=== PATIENT | male | born 1950 | race Two or more races ===

== ENCOUNTER 2024-07-18 14:38 | Inpatient (IN) | payer MEDICARE, OTHER ==
[~2024-07-18] VITALS: Ht 167.6 cm; Wt 77.3 kg
[2024-07-18] MEDS ORDERED: DOCUSATE SOD 100 MG CAP PO PRN (17:45)
[2024-07-18] MEDS ORDERED: NITROGLYCERIN 0.4 MG SL TAB SL PRN (17:45)
[2024-07-18] MEDS ORDERED: ACETAMINOPHEN 325 MG TAB PO PRN (17:45)
[2024-07-18] MEDS ORDERED: ONDANSETRON HCL 4 MG/2 ML VIAL IV PRN (17:45)
[2024-07-18] MEDS ORDERED: MORPHINE SULFATE INJ 2 MG/ml SYRG IV PRN ×2 (17:45)
[2024-07-18] MEDS ORDERED: LORazepam 0.5 MG TAB PO PRN (17:45)
--- NOTE | 2024-07-18 18:03 | DVHHPRES ---
History of Present Illness Resident Creating Document: SHERWIN POWELL RESIDENT History of Present Illness Renato Juárez is a 73-year-old male patient who presents transferred from other center ([facility]ly [facility]) due to nonradiating retrosternal stabbing chest pain in variable functional class, intensity 10/10, of less than 5 seconds duration, which does not reproduce with palpation nor with our movements of respiration associated with hypertension (systolic blood pressure of 170 mmHg) and dyspnea in variable functional class. Patient reports episode of mechanical fall with no loss of consciousness, per patient he felt that his legs were weak. Patient was diagnosed with NSTEMI (had elevated troponin and other center), for which he was transferred to higher level of care to follow up with evaluation. Denies palpitation, syncope, fever, chills, nausea, vomiting, diarrhea, constipation, bleeding, sick contacts, recent travel and motor and sensory deficits. Past medical history: Hypertension, COPD on intermittent home oxygen (2 liters/minute, normally during nighttime), AAA status postop with posterior umbilical hernia but patient is inoperable due to his COPD status. Surgical history: AAA surgical repair in 2019 Family history: Noncontributory Social history: Recently moved to [place] from [place], he lives with gra nddaughter. He used to live in [place] with spouse and daughter, we are going to come visit him. Ex-smoker (50 pack-year history of smoking). Socially drinks alcohol (less than two drinks per week). Denies current tobacco, alcohol and other drug abuse Allergies: Denies Home medication: Lisinopril 5 mg p.o. daily, cholecalciferol, tiotropium, mometasone Patient seen and examined at bedside. Currently has no new complaints, has not felt chest pain since he was transferred from the other center. Patient continues with hypertensive blood pressure measurements. Past Medical History Per HPI Past Surgical History Per HPI Family History Per HPI Past Social History Per HPI Review of Systems Review of Systems Per HPI Allergies: Coded Allergies: NO KNOWN ALLERGIES (Unverified , 07/18/24) Medications Current Medications Medications Dose Ordered Sig/Niels Route Start Time Stop Time Status Last Admin Dose Admin Hydralazine HCl 10 mg Q6HR IV 07/18/24 18:00 UNV Exam Exam Patient lying in bed, in no acute distress General: Lucid, afebrile, mucosae are moist Cardiovascular: Normal S1 and S2. No murmurs, gallops or rubs Respiratory: Normal ventilation mechanics. Bibasilar rales, rest of lung auscultation with decreased lung sounds. Currently on nasal cannula 3 liters/minute Abdomen: Soft, nontender, no organomegaly, normal bowel sounds MSK/skin: Mobilizes 4 limbs. Skin is dry and warm. Bilateral supramalleolar pitting edema +2 Neurological: Oriented in 3 spheres. No motor no sensitive deficits. Pupils are isocoric and reactive Assessment/Plan Assessment/Plan Hypertensive emergency Continue with home medication (lisinopril 5 mg p.o. daily) Per records, patient presented chest pain and elevated troponin and other center. Chest pain impresses noncardiac (stabbing, seconds of duration and in variable functional class) Hydralazine p.r.n. Ordered echocardiogram NSTEMI probable type 2 Due to above Completed EKG which shows sinus rhythm at 75 beats per minute, complete RBBB, i solated PACs Acute respiratory failure On oxygen therapy Acute on chronic undetermined CHF (pending echocardiogram to evaluate LVEF) Currently on IV diuretics (furosemide 40 mg IV b.i.d.) Ordered echocardiogram, pending. Probable COPD exacerbation Currently patient is on on oxygen therapy (3 liters/minute), higher requirement that home oxygen therapy Indicated bronchodilators, IV steroids and doxycycline History of AAA status postop Completed surgery in 2019 and [place] Umbilical hernia Patient is inoperable due to his COPD status. Goals of care discussed with patient for over 18 minutes: Full code status Discussed case with Dr. Lazaro, patient and nurses: Completed complementary workup (chest x-ray, complete lab workup, echocardiogram). Optimizing medical therapy with IV diuretics, bronchodilators, oxygen therapy and antibiotics. Optimizing blood pressure with antihypertensive medication IV, continue with p.o. medication. Plan discussed with: Patient, Other (Nurses) My Orders Orders - SHERWIN POWELL RESIDENT Procedure Category Date Status Time Chest Xray 1 View XY 07/18/24 Logged 17:38 B-Type Natriuretic LAB 07/18/24 Logged Peptide 17:38 Vitamin D, 25-Hydroxy LAB 07/18/24 Logged 17:38 Vitamin B12 LAB 07/18/24 Logged 17:38 Phosphorus LAB 07/18/24 Logged 17:38 Magnesium LAB 07/18/24 Logged 17:38 Lipid Panel LAB 07/18/24 Logged 17:38 Lactic Acid W/ Reflex LAB 07/18/24 Logged Order 17:38 Hemoglobin A1c LAB 07/18/24 Logged 17:38 Date of Service: Jul 18, 2024 Billing Provider: AMALIA LAZARO MD Common Visit Codes: [id number] INP/OBS CARE (HIGH) Secondary Visit Codes: [id number] CARE PLAN 30 MINUTES SHERWIN POWELL RESIDENT Jul 18, 2024 18:03 MAALIA LAZARO MD Jul 18, 2024 21:42
[2024-07-18] MEDS ORDERED: FUROSEMIDE 40 MG/4 ML VIAL IV SCH (18:15)
--- NOTE | 2024-07-18 18:27 | DVH ---
CHEST RADIOGRAPH Indication: NSTEMI Technique: Single frontal view of the chest was obtained COMPARISON: None FINDINGS: Lines and Tubes: None Lungs: Multifocal airspace disease. Pleura: No effusion. No pneumothorax. Cardiomediastinal contours: Unremarkable Bones: Unremarkable IMPRESSION: Multifocal airspace disease.
[2024-07-18 18:57] VITALS: BP 148/95; PULSE 61; RESP 18; RESP 20; TEMP 98.1; O2SAT 94
[2024-07-18 20:00] VITALS: PULSE 77
[2024-07-18 20:04] LABS: Basophils # (auto) 0 10 ^3/uL (0-0.2); Basophils % (auto) 0.7 % (0.0-2.0); Eosinophils # (auto) 0 10 ^3/uL (0-0.8); Eosinophils % (auto) 0.4 % (0.0-7.0); Hemoglobin 15.2 g/dL (13.5-17.5); Lymphocytes # (auto) 0.8 10 ^3/uL (0.4-5.4); Lymphocytes % (auto) 16.6 % (10.0-50.0); Mean Corpuscular Hgb Conc. 33.8 g/dL (32.0-36.0); Mean Corpuscular Volume 97.6 fL (80.0-100.0); Monocytes # (auto) 0.6 10 ^3/uL (0-1.3); Monocytes % (auto) 12.1 % (0.0-12.0); Neutrophils # (auto) 3.4 10 ^3/uL (1.6-8.6); Neutrophils % (auto) 70.2 % (37.0-80.0); Nucleated Red Blood Cells % 0.2 %; Platelet Count (auto) 250 10^3/uL (140-450); Red Blood Cells 4.61 10^6/uL (4.5-5.90); Red Cell Distribution Width 15.9 % (11.8-14.3); White Blood Cell 4.9 10^3/uL (4.4-10.8)
[2024-07-18 20:24] LABS: Albumin 3.8 g/dL (3.2-4.8); Alkaline Phosphatase 99 U/L (46-116); Anion Gap 7 (5-15); BUN/Creatinine Ratio 8.6 (10.0-20.0); Calcium 9.5 mg/dL (8.7-10.4); Carbon Dioxide 27 mmol/L (20-31); Chloride 106 mmol/L (98-107); Potassium 3.5 mmol/L (3.5-5.1); Sodium 140 mmol/L (136-145)
[2024-07-18 20:26] LABS: Bilirubin, Total 1.1 mg/dL (0.2-1.0); Total Protein 6.7 g/dL (5.7-8.2)
[2024-07-18 20:35] LABS: Alanine Aminotransferase 42 U/L (7-40); Aspartate Aminotransferase 49 U/L (13-40); Blood Urea Nitrogen 8 mg/dL (9-23); Glucose 108 mg/dL (74-106)
[2024-07-18 20:37] LABS: Magnesium 1.7 mg/dL (1.6-2.6)
[2024-07-18 20:39] LABS: Phosphorus 2.9 mg/dL (2.4-5.1)
[2024-07-18 21:00] VITALS: BP 153/94; PULSE 72; RESP 19; TEMP 97.7; O2SAT 92
[2024-07-18] MEDS: FUROSEMIDE 40 MG/4 ML VIAL IV ONE (22:06)
[2024-07-18 22:07] VITALS: PULSE 82; RESP 20; O2SAT 93
[2024-07-18] MEDS: ALBUTEROL SULF 2.5 MG/0.5ML(0.5%) NEB SOLN NEB SCH (22:07)
[2024-07-18] MEDS: IPRATROPIUM BROM 0.5 MG/2.5ML INH SOL NEB SCH (22:07)
[2024-07-18] MEDS: DOXYCYCLINE 100MG/250ML 250 ML IV SCH (22:07)
[2024-07-18] MEDS: LISINOPRIL 5 MG TAB PO SCH (22:07)
[2024-07-18 22:15] VITALS: PULSE 76; RESP 16; O2SAT 96
[2024-07-19] VITALS (16 sets, daily range): BP systolic 121–155; BP diastolic 69–91; PULSE 73–118; RESP 16–23; TEMP 97.2–98.1; O2SAT 93–100
[2024-07-19] MEDS: hydrALAZINE HCL 20 MG/ML VL IV SCH (01:08)
[2024-07-19] MEDS: MAGNESIUM SULFATE 1GM/100ML 100 ML IV ONE (01:14)
[2024-07-19] MEDS: FUROSEMIDE 40 MG/4 ML VIAL IV SCH (05:32)
[2024-07-19 07:39] LABS: Basophils # (auto) 0 10 ^3/uL (0-0.2); Basophils % (auto) 0.8 % (0.0-2.0); Eosinophils # (auto) 0.1 10 ^3/uL (0-0.8); Eosinophils % (auto) 1.1 % (0.0-7.0); Hematocrit 45.9 % (41.0-53.0); Hemoglobin 15.9 g/dL (13.5-17.5); Lymphocytes # (auto) 1.1 10 ^3/uL (0.4-5.4); Lymphocytes % (auto) 18.7 % (10.0-50.0); Mean Corpuscular Hemoglobin 33.5 pg (28.0-32.0); Mean Corpuscular Hgb Conc. 34.8 g/dL (32.0-36.0); Mean Corpuscular Volume 96.5 fL (80.0-100.0); Monocytes # (auto) 0.8 10 ^3/uL (0-1.3); Monocytes % (auto) 13.4 % (0.0-12.0); Neutrophils # (auto) 3.9 10 ^3/uL (1.6-8.6); Nucleated Red Blood Cells % 0.2 %; Platelet Count (auto) 248 10^3/uL (140-450); Red Blood Cells 4.76 10^6/uL (4.5-5.90); Red Cell Distribution Width 15.7 % (11.8-14.3); White Blood Cell 5.9 10^3/uL (4.4-10.8)
[2024-07-19 07:53] LABS: Urine Bacteria None Seen /hpf (None Seen)
[2024-07-19 07:59] LABS: Albumin 3.9 g/dL (3.2-4.8); Alkaline Phosphatase 103 U/L (46-116); Anion Gap 11 (5-15); BUN/Creatinine Ratio 9.5 (10.0-20.0); Blood Urea Nitrogen 9 mg/dL (9-23); Calcium 9.5 mg/dL (8.7-10.4); Carbon Dioxide 26 mmol/L (20-31); Chloride 103 mmol/L (98-107); Magnesium 1.9 mg/dL (1.6-2.6); Phosphorus 2.9 mg/dL (2.4-5.1); Sodium 140 mmol/L (136-145); Total Protein 6.6 g/dL (5.7-8.2)
[2024-07-19 08:00] LABS: Alanine Aminotransferase 44 U/L (7-40); Aspartate Aminotransferase 48 U/L (13-40); Bilirubin, Total 1.3 mg/dL (0.2-1.0); Glucose 107 mg/dL (74-106); Potassium 3.1 mmol/L (3.5-5.1)
[2024-07-19 08:33] LABS: Urine Blood Negative /uL (Negative); Urine Clarity Clear (Clear); Urine Color Colorless (Yellow); Urine Protein, UAD Negative (Negative); Urine Specific Gravity 1.007 (1.001-1.035); Urine Urobilinogen Normal (Negative); Urine WBC <1 /hpf (0 - 3)
[2024-07-19 08:49] LABS: Amphetamine Screen, Urine Neg (NEGATIVE); Barbiturate Scree,Urine Neg (NEGATIVE); Benzodiazephine Screen, Urine Neg (NEGATIVE); Cocaine Screen, Urine Neg (NEGATIVE)
[2024-07-19 08:50] LABS: Cannabinoid Screen, Urine Neg (NEGATIVE); Opiate Scree,Urine Neg (NEGATIVE); Phencyclidine Screen, Urine Neg (NEGATIVE)
[2024-07-19] MEDS: POTASSIUM CHL 20MEQ/100ML 100 ML IV SCH (09:39)
[2024-07-19] MEDS: CHOLECALCIFEROL (VITD3) 1,000UNIT=25mCg TAB PO SCH (09:47)
[2024-07-19] MEDS: ENOXAPARIN SOD 40 MG/0.4 ML SYRINGE SC SCH (09:47)
--- NOTE | 2024-07-19 13:18 | DVHPNRES ---
Progress Note Date Seen: Jul 19, 2024 Resident Creating Document: DENISSE AZEVEDO RESIDENT Has the PT tested + for MRSA If YES, has PT been informed?: No Medical Necessity Reason Pt with a Central, PICC or Fol: No Subjective Review of Systems Renato Juárez is a 73-year-old male patient who presents transferred from other center ([facility]) due to nonradiating retrosternal stabbing chest pain in variable functional class, intensity 10/10, of less than 5 seconds duration, which does not reproduce with palpation nor with our movements of respiration associated with hypertension (systolic blood pressure of 170 mmHg) and dyspnea in variable functional class. Patient reports episode of mechanical fall with no loss of consciousness, per patient he felt that his legs were weak. Patient was diagnosed with NSTEMI (had elevated troponin and other center), for which he was transferred to higher level of care to follow up with evaluation. Denies palpitation, syncope, fever, chills, nausea, vomiting, diarrhea, constipation, bleeding, sick contacts, recent travel and motor and sensory deficits. Past medical history: Hypertension, COPD on intermittent home oxygen (2 liters/minute, normally during nighttime), AAA status postop with posterior umbilical hernia but patient is inoperable due to his COPD status. Surgical history: AAA surgical repair in 2019 Family history: Noncontributory Social history: Recently moved to [place] from [place], he lives with granddaughter. He used to live in [place] with spouse and daughter, we are going to come visit him. Ex-smoker (50 pack-year history of smoking). Socially drinks alcohol (less than two drinks per week). Denies current tobacco, alcohol and other drug abuse Allergies: Denies Home medication: Lisinopril 5 mg p.o. daily, cholecalciferol, tiotropium, mometasone Patient seen and examined at bedside. Currently has no new complaints, has not felt chest pain since he was transferred from the other center. Patient continues with hypertensive blood pressure measurements. Objective vital signs Vital Sign Date Time Temp Pulse Resp B/P (MAP) Pulse Ox O2 Delivery O2 Flow Rate FiO2 07/19/24 13:13 95 Nasal Cannula* 3 32 07/19/24 13:13 86 18 07/19/24 09:47 121/81 07/19/24 09:01 97.6 97.6 Total Intake and Output 07/18/24 07/18/24 07/19/24 15:00 23:00 07:00 Intake Total 125 ml Output Total 500 ml Balance -375 ml medications Current Medications Medications Dose Ordered Sig/Niels Route Start Time Stop Time Status Last Admin Dose Admin Hydralazine HCl 10 mg Q6HR IV 07/18/24 18:00 07/19/24 05:33 10 MG Lorazepam 0.5 mg Q6HP PRN PO 07/18/24 17:45 Docusate Sodium 100 mg BIDPRN PRN PO 07/18/24 17:45 Acetaminophen 650 mg Q6HP PRN PO 07/18/24 17:45 Ondansetron HCl 4 mg Q4HP PRN IV 07/18/24 17:45 Morphine Sulfate 2 mg Q4HPRN PRN IV 07/18/24 17:45 Enoxaparin Sodium 40 mg DAILY SC 07/19/24 10:00 07/19/24 09:47 40 MG Nitroglycerin 0.4 mg Q5MINP PRN SL 07/18/24 17:45 Morphine Sulfate 2 mg Q30M PRN IV 07/18/24 17:45 Lisinopril 5 mg DAILY PO 07/18/24 18:15 07/19/24 09:47 5 MG Doxycycline Hyclate 250 ml @ 125 mls/hr Q12H IV 07/18/24 18:15 07/19/24 05:32 125 MLS/HR Albuterol 2.5 mg Q8HR NEB 07/18/24 22:00 07/19/24 13:13 2.5 MG Ipratropium Devers 0.5 mg Q8HR NEB 07/18/24 22:00 07/19/24 13:13 0.5 MG Furosemide 40 mg BIDD IV 07/19/24 06:00 07/19/24 05:32 40 MG Cholecalciferol 1,000 unit DAILY PO 07/19/24 10:00 07/19/24 09:47 1,000 UNIT Potassium Chloride 100 ml @ 50 mls/hr Q2H IV 07/19/24 08:30 07/19/24 14:29 07/19/24 11:25 50 MLS/HR Examination Patient lying in bed, in no acute distress General: Lucid, afebrile, mucosae are moist Cardiovascular: Normal S1 and S2. No murmurs, gallops or rubs Respiratory: Normal ventilation mechanics. Bibasilar rales, rest of lung auscultation with decreased lung sounds. Currently on nasal cannula 3 liters/minute Abdomen: Soft, nontender, no organomegaly, normal bowel sounds MSK/skin: Mobilizes 4 limbs. Skin is dry and warm. Bilateral supramalleolar pitting edema +2 Neurological: Oriented in 3 spheres. No motor no sensitive deficits. Pupils are isocoric and reactive laboratory and microbiology Laboratory Tests 07/19/24 06:09 Test 07/19/24 06:09 Range/Units Serum Glucose 107 H 74-106 mg/dL Problem List/Assessment/Plan Problem List/Assessment/Plan Hypertensive emergency resolved Continue with home medication (lisinopril 5 mg p.o. daily) Per records, patient presented chest pain and elevated troponin and other center. Chest pain impresses noncardiac (stabbing, seconds of duration and in variable functional class) Hydralazine p.r.n. Ordered echocardiogram NSTEMI probable type 2? Due to above Troponins negative in this facility Completed EKG which shows sinus rhythm at 75 beats per minute, complete RBBB, isolated PACs Acute respiratory failure due to COPD exacerbation On oxygen therapy Acute on chronic undetermined CHF (pending echocardiogram to evaluate LVEF) Currently on IV diuretics (furosemide 40 mg IV b.i.d.) Ordered echocardiogram, pending lecture Probable COPD exacerbation Currently patient is on on oxygen therapy (3 liters/minute), higher requirement that home oxygen therapy Indicated bronchodilators, IV steroids and doxycycline Hyperkalemia IV potassium Vitamin D deficiency Replenish History of AAA status postop Completed surgery in 2019 and [place] Umbilical hernia Patient is inoperable due to his COPD status. Goals of care discussed with patient for over 18 minutes: Full code status Discussed case with Dr. Patino, patient and nurses: Completed complementary workup (chest x-ray, complete lab workup, echocardiogram). Optimizing medical therapy with IV diuretics, bronchodilators, oxygen therapy and antibiotics. Optimizing blood pressure with antihypertensive medication IV, continue with p.o. medication. Plan discussed with: Patient, Other (rn) My Orders My Orders Orders - DENISSE AZEVEDO Procedure Category Date Status Time Electrocardigram EKG 07/18/24 Logged 17:20 Electrocardigram EKG 07/18/24 Logged 18:20 Electrocardigram EKG 07/18/24 Logged 20:20 Hydralazine Injection PHA 07/18/24 In Process (Apresoline Inject 18:00 Lisinopril Tablet PHA 07/18/24 In Process (Zestril Tablet) 18:15 Doxycycline PHA 07/18/24 In Process 100mg/250ml 18:15 Albuterol Medneb PHA 07/18/24 In Process (Ventolin Medneb) 22:00 Ipratropium Medneb PHA 07/18/24 In Process (Atrovent Medneb) 22:00 Potassium Chl PHA 07/19/24 In Process 20meq/100ml 08:30 Date of Service: Jul 19, 2024 Billing Provider: JEANIE PATINO MD Common Visit Codes: [id number] INP/OBS CARE(HIGH) DENISSE AZEVEDO RESIDENT Jul 19, 2024 13:18 JEANIE PATINO MD Jul 20, 2024 18:10
[2024-07-19] MEDS: amLODIPine BESYLATE 5 MG TAB PO ONE (14:00)
[2024-07-19] MEDS: POTASSIUM EFFERVESENT TAB 25 MEQ PO ONE (14:00)
--- NOTE | 2024-07-19 22:15 | DVHSR ---
APPROVED REPORT EXAM: Two-dimensional and M-mode echocardiogram with Doppler and color Doppler. Blood Pressure: 123/69 mmHg INDICATION NSTEMI RISK FACTORS Height: 5'6", Weight: 170 DIMENSIONS LVDd5.1 (3.8-5.7cm)LA (2D)4.0 (1.9-4.0cm)Aortic Root3.3 (2.0-3.7cm) LVDs3.5 (2.5-4.0cm)LA (MM) (1.9-4.0cm)Aortic Cusp Exc1.4 (1.5-2.0cm) EF (%) 60.0 (55-70%)Rt. Atrium4.3 (1.9-4.0cm)Asc. Aorta3.5 cm IVSd1.3 (0.7-1.1cm)RV (D)4.3 (1.8-2.4cm) PWd1.3 (0.7-1.1cm) Mitral Valve MitralMitral Stenosis E/A ratio0.02D MVAcm2 Aortic Valve Aortic ValveAortic Stenosis V10.88m/Joaquina Mean GR.7mmHg V21.73m/Joaquina Peak GR.12mmHg LVOT Diameter2.2 (1.8-2.4cm)Doppler AVA1.93cm2 Pulmonic Valve V20.90m/s Conclusion Normal left ventricular size and dimension. Normal left ventricular systolic function estimated ejec tion fraction 55%. There is a grade 1 diastolic dysfunction. Normal right ventricular size and dimension. Normal right ventricular systolic function. Normal biatrial size and dimension. There is a mild aortic valve sclerosis. Normal mitral valve structure and function. Normal tricuspid valve structure and function. The pulmonary valve is grossly normal. No pericardial effusion.
[2024-07-20] VITALS (10 sets, daily range): BP systolic 89–121; BP diastolic 61–77; PULSE 65–100; RESP 17–20; TEMP 97.7–98.6; O2SAT 92–96
[2024-07-20] MEDS: ERGOCALCIFEROL 50,000 UNIT(1.25MG) CAP PO SCH (05:20)
[2024-07-20 06:09] LABS: Basophils # (auto) 0.1 10 ^3/uL (0-0.2); Eosinophils # (auto) 0.1 10 ^3/uL (0-0.8); Eosinophils % (auto) 1.4 % (0.0-7.0); Hematocrit 45.1 % (41.0-53.0); Hemoglobin 15.5 g/dL (13.5-17.5); Lymphocytes # (auto) 1.1 10 ^3/uL (0.4-5.4); Lymphocytes % (auto) 16.7 % (10.0-50.0); Mean Corpuscular Hemoglobin 33.5 pg (28.0-32.0); Mean Corpuscular Hgb Conc. 34.5 g/dL (32.0-36.0); Monocytes % (auto) 15.3 % (0.0-12.0); Neutrophils # (auto) 4.3 10 ^3/uL (1.6-8.6); Neutrophils % (auto) 65.6 % (37.0-80.0); Nucleated Red Blood Cells % 0.3 %; Platelet Count (auto) 263 10^3/uL (140-450); Red Blood Cells 4.65 10^6/uL (4.5-5.90); Red Cell Distribution Width 15.7 % (11.8-14.3); White Blood Cell 6.5 10^3/uL (4.4-10.8)
[2024-07-20 06:42] LABS: Alanine Aminotransferase 35 U/L (7-40); Alkaline Phosphatase 94 U/L (46-116); Anion Gap 7 (5-15); BUN/Creatinine Ratio 7.8 (10.0-20.0); Blood Urea Nitrogen 9 mg/dL (9-23); Calcium 9.6 mg/dL (8.7-10.4); Carbon Dioxide 28 mmol/L (20-31); Chloride 104 mmol/L (98-107); Glucose 98 mg/dL (74-106); Sodium 139 mmol/L (136-145)
[2024-07-20 06:43] LABS: Albumin 3.8 g/dL (3.2-4.8); Aspartate Aminotransferase 37 U/L (13-40); Total Protein 6.6 g/dL (5.7-8.2)
[2024-07-20 06:46] LABS: Bilirubin, Total 1.3 mg/dL (0.2-1.0); Potassium 3.3 mmol/L (3.5-5.1)
[2024-07-20] MEDS: FUROSEMIDE 20 MG TAB PO SCH (10:00)
[2024-07-20 10:35] LABS: Base Excess 1.3 mmol/L (-2.0-3.0)
[2024-07-20] MEDS ORDERED: AMLO1TAB22 PO (11:29)
[2024-07-20] MEDS ORDERED: ACET-1882 PO (11:29)
[2024-07-20] MEDS ORDERED: FURO20TA4 PO (11:29)
[2024-07-20] MEDS ORDERED: LISI-275 PO (11:29)
[2024-07-20] MEDS ORDERED: EMPA1TAB PO (11:29)
[2024-07-20] MEDS ORDERED: DOXY50CA PO (11:33)
[2024-07-20] MEDS: amLODIPine BESYLATE 5 MG TAB PO ONE (12:45)
[2024-07-20] MEDS: EMPAGLIFLOZIN 10 MG TAB PO SCH (12:45)
--- NOTE | 2024-07-20 19:15 | DVHDSRES ---
Discharge Summary Date of Admission Resident Creating Document: ARIA DENISSE Ulloa RESIDENT Jul 18, 2024 at 16:42 Date of Discharge: Jul 20, 2024 Admitting Diagnosis acute on chronic HF Labs/Diagnostic Data: Laboratory Results Test 07/20/24 10:28 07/20/24 05:14 07/19/24 06:09 07/18/24 22:51 Blood Gas Specimen Type Arterial Blood Gas Sample Site Left radial Blood Gas Patient Temperature 37.0 Arterial Blood Date Drawn [id number] Arterial Blood pH 7.523 (7.350-7.450) Arterial Blood Partial Pressure CO2 28.0 mmHg (35.0-48.0) Arterial Blood Partial Pressure O2 53.0 mmHg (83.0-108.0) Arterial Blood HCO3 22.5 mmol/L (21.0-28.0) Arterial Blood Oxygen Saturation 88.5 % (94.0-98.0) Arterial Blood Base Excess 1.3 mmol/L (-2.0-3.0) Arterial Blood Oxyhemoglobin 86.7 % (94.0-98.0) Arterial Blood Carboxyhemoglobin 1.5 % (0.5-1.5) Arterial Blood Methemoglobin 0.5 % (0.0-1.5) Skip Test Yes Blood Gas Total Hemoglobin 17.00 g/dL (13.5-17.5) Blood Gas Modality Room air FiO2 % 21.0 Blood Gas Critical Value Read Back Yes Blood Gas Notified Whom Blood Gas Notified Time [id number] Blood Gas Notified By Counseling Case Manager alonzo White Blood Count 6.5 10^3/uL (4.4-10.8) Red Blood Count 4.65 10^6/uL (4.5-5.90) Hemoglobin 15.5 g/dL (13.5-17.5) Hematocrit 45.1 % (41.0-53.0) Mean Corpuscular Volume 97.0 fL (80.0-100.0) Mean Corpuscular Hemoglobin 33.5 pg (28.0-32.0) Mean Corpuscular Hemoglobin Concent 34.5 g/dL (32.0-36.0) Red Cell Distribution Width 15.7 % (11.8-14.3) Platelet Count 263 10^3/uL (140-450) Mean Platelet Volume 6.5 fL (6.9-10.8) Neutrophils (%) (Auto) 65.6 % (37.0-80.0) Lymphocytes (%) (Auto) 16.7 % (10.0-50.0) Monocytes (%) (Auto) 15.3 % (0.0-12.0) Eosinophils (%) (Auto) 1.4 % (0.0-7.0) Basophils (%) (Auto) 1.0 % (0.0-2.0) Neutrophils # (Auto) 4.3 10 ^3/uL (1.6-8.6) Lymphocytes # (Auto) 1.1 10 ^3/uL (0.4-5.4) Monocytes # (Auto) 1.0 10 ^3/uL (0-1.3) Eosinophils # (Auto) 0.1 10 ^3/uL (0-0.8) Basophils # (Auto) 0.1 10 ^3/uL (0-0.2) Nucleated Red Blood Cells 0.3 % Sodium Level 139 mmol/L (136-145) Potassium Level 3.3 mmol/L (3.5-5.1) Chloride Level 104 mmol/L (98-107) Carbon Dioxide Level 28 mmol/L (20-31) Anion Gap 7 (5-15) Blood Urea Nitrogen 9 mg/dL (9-23) Creatinine 1.15 mg/dL (0.700-1.30) Glomerular Filtration Rate Calc 66 mL/min (>90) BUN/Creatinine Ratio 7.8 (10.0-20.0) Serum Glucose 98 mg/dL (74-106) Calcium Level 9.6 mg/dL (8.7-10.4) Total Bilirubin 1.3 mg/dL (0.2-1.0) Aspartate Amino Transferase (AST) 37 U/L (13-40) Alanine Aminotransferase (ALT) 35 U/L (7-40) Alkaline Phosphatase 94 U/L (46-116) Total Protein 6.6 g/dL (5.7-8.2) Albumin 3.8 g/dL (3.2-4.8) Phosphorus Level 2.9 mg/dL (2.4-5.1) Magnesium Level 1.9 mg/dL (1.6-2.6) Troponin I High Sensitivity 50 ng/L (</=54) Test 07/18/24 19:15 07/18/24 06:51 Hemoglobin A1c 5.4 % A1C (<5.7) Lactic Acid Level 1.1 mmol/L (0.4-2.0) B-Type Natriuretic Peptide 841.57 pg/mL (0-100) Triglycerides Level 85 mg/dL (< 150) Cholesterol Level 169 mg/dL (< 200) LDL Cholesterol 91 mg/dL (< 100) HDL Cholesterol 56 mg/dL (40-59) Vitamin B12 Level 488 pg/mL (211-911) Vitamin D 25-Hydroxy 24.4 ng/mL (30.0-100) Urine Color Colorless (Yellow) Urine Clarity Clear (Clear) Urine pH 7.0 (5.0-9.0) Urine Specific Royal 1.007 (1.001-1.035) Urine Protein Negative (Negative) Urine Ketones Negative (Negative) Urine Blood Negative /uL (Negative) Urine Nitrite Negative (Negative) Urine Bilirubin Negative (Negative) Urine Urobilinogen Normal mg/dL (Negative) Urine Leukocyte Esterase Negative /uL (Negative) Urine RBC <1 /hpf (0 - 3) Urine WBC <1 /hpf (0 - 3) Urine Squamous Epithelial Cells None seen /hpf (<5) Urine Bacteria None seen /hpf (None Seen) Urine Glucose Normal mg/dL (Normal) Urine Opiates Screen Neg (NEGATIVE) Urine Fentanyl Screen Neg (NEGATIVE) Urine Barbiturates Screen Neg (NEGATIVE) Urine Phencyclidine Screen Neg (NEGATIVE) Urine Amphetamines Screen Neg (NEGATIVE) Urine Benzodiazepines Screen Neg (NEGATIVE) Urine Cocaine Screen Neg (NEGATIVE) Urine Cannabinoids Screen Neg (NEGATIVE) Other Laboratory Tests 07/20/24 05:14 Brief Hx & Hospital Course: A 73-year-old male with a history of COPD, hypertension, hyperlipidemia, and status post-AAA repair (2019) was transferred for evaluation of non-radiating retrosternal chest pain of variable intensity lasting less than five seconds. The pain, unrelated to exertion, was associated with dyspnea. He was diagnosed with NSTEMI (likely type 2) at the previous facility and transferred for further management. At admission patient was in hypertensive emergency, troponins and EKG were negative for ACS. The hospital course was marked by oxygen therapy for [id number] respiratory failure and diuresis for CHF exacerbation. Cardiac monitoring revealed a sinus rhythm with PACs and RBBB without arrhythmias. Echocardiography showed normal EF, no structural abnormalities. The patient was stabilized on inhaled bronchodilators, steroids, and antibiotics for probable COPD exacerbation. Discharge planning included optimizing therapy for COPD and CHF, home oxygen due to acute respiratory failure, close outpatient follow-up, and continuation of his antihypertensive and lipid-lowering medications. Patient lying in bed, in no acute distress General: Lucid, afebrile, mucosae are moist Cardiovascular: Normal S1 and S2. No murmurs, gallops or rubs Respiratory: Normal ventilation mechanics. Bibasilar rales, rest of lung auscultation with decreased lung sounds. Currently on nasal cannula 3 liters/minute Abdomen: Soft, nontender, no organomegaly, normal bowel sounds MSK/skin: Mobilizes 4 limbs. Skin is dry and warm. Bilateral supramalleolar pitting edema +2 Neurological: Oriented in 3 spheres. No motor no sensitive deficits. Pupils are isocoric and reactive Case discussed with Dr Patino Operations or Procedures EXAM: Two-dimensional and M-mode echocardiogram with Doppler and color Doppler. Blood Pressure: 123/69 mmHg INDICATION NSTEMI RISK FACTORS Height: 5'6", Weight: 170 DIMENSIONS LVDd 5.1 (3.8-5.7cm) LA (2D) 4.0 (1.9-4.0cm) Aortic Root 3.3 (2.0- 3.7cm) LVDs 3.5 (2.5-4.0cm) LA (MM) (1.9-4.0cm) Aortic Cusp Exc 1.4 (1.5- 2.0cm) EF (%) 60.0 (55-70%) Rt. Atrium 4.3 (1.9-4.0cm) Asc. Aorta 3.5 cm IVSd 1.3 (0.7-1.1cm) RV (D) 4.3 (1.8-2.4cm) PWd 1.3 (0.7-1.1cm) Mitral Valve Mitral Mitral Stenosis E/A ratio 0.0 2D MVA cm2 Aortic Valve Aortic Valve Aortic Stenosis V1 0.88m/s AO Mean GR. 7mmHg V2 1.73m/s AO Peak GR. 12mmHg LVOT Diameter 2.2 (1.8-2.4cm) Doppler VLAD 1.93cm2 Pulmonic Valve V2 0.90m/s Conclusion Normal left ventricular size and dimension. Normal left ventricular systolic function estimated ejection fraction 55%. There is a grade 1 diastolic dysfunction. Normal right ventricular size and dimension. Normal right ventricular systolic function. Normal biatrial size and dimension. There is a mild aortic valve sclerosis. Normal mitral valve structure and function. Normal tricuspid valve structure and function. The pulmonary valve is grossly normal. No pericardial effusion. CHEST RADIOGRAPH Indication: NSTEMI Technique: Single frontal view of the chest was obtained COMPARISON: None FINDINGS: Lines and Tubes: None Lungs: Multifocal airspace disease. Pleura: No effusion. No pneumothorax. Cardiomediastinal contours: Unremarkable Bones: Unremarkable IMPRESSION: Multifocal airspace disease. Condition at Discharge: Stable Final Diagnosis/Problems List Hypertensive emergency resolved NSTEMI probable type 2 due to hypertensive emergency Acute respiratory failure due to COPD exacerbation Acute on distolic heart failure COPD exacerbation Hyperkalemia Vitamin D deficiency History of AAA status postop Umbilical hernia Discharge Disposition: Home Discharge Instruct/Medications Diet: Consistent carbohydrate, Cardiac 2g Na,low cholest Activity: Light activity Follow Up/Referral: fu with pcp Medications: see prescription Discharge Statement: "Patient was advised to return to the ER or call 911 if any headaches, dizziness, shortness of breath, chest pain, abdominal pain, bleeding, fevers, or worsening of medical condition. Patient was counseled about treatment plan, medications, possible side effects, patientverbalized understanding. All questions were answered to the best of my ability. This discharge took greater then 30 minutes in planning, reviewing documentation, counseling the patient, and discussing with other team members." ASSESSMENT ASSESSMENT Assessment acte on chronic Hf acute exacerbation COPD DENISSE AZEVEDO RESIDENT Jul 20, 2024 19:15
[2024-07-21] MEDS ORDERED: amLODIPine BESYLATE 5 MG TAB PO SCH (10:00)
== END 2024-07-20 18:15 | disposition home or self-care (01) | DRG 280 ==
LOC: TELE-WESTW 16:42 → WEST WING 07-20 08:17
PROVIDERS: ADMIT Internal Medicine Geriatric Medicine; ATTEND Internal Medicine Geriatric Medicine
DX: I11.0 Hypertensive heart disease with heart failure (principal); I50.33 Acute on chronic diastolic (congestive) heart failure; I21.A1 Myocardial infarction type 2; J96.20 Acute and chronic respiratory failure, unspecified whether with hypoxia or hypercapnia; I16.1 Hypertensive emergency; J44.1 Chronic obstructive pulmonary disease with (acute) exacerbation; E87.5 Hyperkalemia; E55.9 Vitamin D deficiency, unspecified; K42.9 Umbilical hernia without obstruction or gangrene; E78.5 Hyperlipidemia, unspecified; I45.10 Unspecified right bundle-branch block; Z86.79 Personal history of other diseases of the circulatory system; Z79.899 Other long term (current) drug therapy
CPT/HCPCS: 36415; 36600; 71045; 80053; 80061; 80307; 81001; 82306; 82607; 82805; 83036; 83605; 83735; 83880; 84100; 84484; 85025; 93306; 94640; G0378; J3480; J3490